=== PATIENT | female | born 1940 | race Caucasian/White ===

== ENCOUNTER 2016-12-05 20:55 | Emergency (ER) | payer MEDICARE, BC ==
[2016-12-05 21:00] VITALS: TEMP 97.5
--- NOTE | 2016-12-05 21:21 | ED ---
General Adult HPI - General Chief complaint: Recheck/Abnormal Lab/Rx Stated complaint: Sent by Urgent Care Time Seen by Provider: 12/05/16 21:03 Source: patient Mode of arrival: ambulatory Limitations: no limitations - History of Present Illness Initial comments: Patient sent to the ER from urgent care for elevated blood pressure. Patient states she had episode of blurry vision in her right eye earlier today, states her face felt flushed. She checked her blood pressure and it was 140/104. Patient states she went to urgent care, there blood pressure was 160/100, so she was sent to the ER. Patient takes losartan 50 mg nightly. Patient states she took medication approximately one hour prior to being seen in urgent care. Patient's blood pressure in the ER currently is 165/70. Patient states since arriving to the ER she is asymptomatic. States flushing in the face and blurred vision has resolved. Patient denies history of coronary artery disease , smoking, numbness, weakness, confusion, speech problems or chest pains, palpitations, shortness of breath, nausea, vomiting. Denies recent changes in medication. MD Complaint: Hypertension - sent by urgent care - Related Data Allergies Allergy/AdvReac Type Severity Reaction Status Date / Time No Known Allergies Allergy Verified 12/05/16 21:00 Review of Systems ROS Statement: Those systems with pertinent positive or pertinent negative responses have been documented in the HPI. ROS Other: All systems not noted in ROS Statement are negative. Constitutional: Denies: fever, chills, weakness Eyes: Reports: vision change. Denies: eye pain, eye discharge ENT: Denies: ear pain, congestion Respiratory: Denies: cough, dyspnea Cardiovascular: Denies: chest pain, palpitations, edema, syncope Gastrointestinal: Denies: abdominal pain, nausea, vomiting Genitourinary: Denies: frequency, hematuria Musculoskeletal: Denies: back pain Skin: Denies: rash Neurological: Denies: headache, weakness, numbness, paresthesias, confusion, vertigo Past Medical History Past Medical History: Asthma, Hypertension History of Any Multi-Drug Resistant Organisms: None Reported Past Surgical History: Appendectomy Past Psychological History: No Psychological Hx Reported Smoking Status: Never smoker Past Alcohol Use History: None Reported Past Drug Use History: None Reported General Exam - General Exam Comments Initial Comments: Sitting up in bed. No acute distress. Conversing normally. Calm, pleasant. Smiling, laughing. Well appearing. Limitations: no limitations General appearance: alert, in no apparent distress Head exam: Present: atraumatic, normocephalic Eye exam: Present: normal appearance, PERRL, EOMI Pupils: Present: normal accommodation (Pupils equal and reactive bilaterally. Eye movements intact bilaterally.) ENT exam: Present: mucous membranes moist, normal external ear exam Neck exam: Present: normal inspection. Absent: tenderness, meningismus Respiratory exam: Present: normal lung sounds bilaterally. Absent: respiratory distress, wheezes, rales Cardiovascular Exam: Present: regular rate, normal rhythm. Absent: systolic murmur, diastolic murmur GI/Abdominal exam: Present: soft. Absent: distended, tenderness, guarding, rebound, rigid Neurological exam: Present: alert, oriented X3, CN II-XII intact, normal gait, motor sensory deficit (Cranial nerves intact. Pronator drift negative bilaterally. [id number] Coordinated bilaterally. Muscle strength 5 out of 5 in all ext. Sensation intact in all extremities. Speech clear. GCS 15.). Absent: altered, abnormal gait Skin exam: Present: warm, dry, intact, normal color. Absent: rash, diaphoretic , erythema Course Vital Signs 12/05/16 20:57 Temperature 97.5 F L Pulse Rate 89 Respiratory 18 Rate Blood Pressure 177/76 O2 Sat by Pulse 96 Oximetry Medical Decision Making - Medical Decision Making Patient is symptomatically at time of arrival. Patient's blood pressure 165/70. Patient expressing mild to symptomatically pretension at this time. Initial symptoms resolved with home blood pressure medications. Discussion with patient 's son regarding signs symptoms of cardiac problem, stroke, need for return to ER immediately if any new or worsening symptoms including headache, vision changes, nausea, vomiting, chest pain, palpitations, shortness of breath, vision changes, numbness, weakness, confusion, speech problems. Will discharge home at This time. Patient understands and agrees with plan. Agrees to follow-up primary care physician for blood pressure recheck and possible medication adjustment. Disposition Clinical Impression: Hypertension Disposition: HOME SELF-CARE Condition: Good Instructions: Hypertension (ED) Referrals: Raul Finney MD [Primary Care Provider] - 1-2 days
[2016-12-05 21:50] VITALS: BP 159/84; PULSE 77; RESP 20
== END 2016-12-05 21:50 | disposition home or self-care (01) ==
LOC: EC 20:55
DX: I10 Essential (primary) hypertension (principal); R40.2412 Glasgow coma scale score 13-15, at arrival to emergency department
CPT/HCPCS: 99283